=== PATIENT | female | born 1980 | race Caucasian/White ===

== ENCOUNTER 2016-07-04 15:38 | Emergency (ER) | payer OTHER ==
[~2016-07-04 15:38] MED LIST: BACTRIM 400-801 TA1 PO; CERTAGEN PO; CLEOCIN HCL300 M1 PO; DIFLUCAN PO; KEFLEX PO; KEFLEX500 MG PO; MOTRIN600 M1 PO; ORTHO TRI-7 DAYS X PO; VOLTAREN75 MG PO
== END 2016-07-04 15:47 | disposition home or self-care (01) ==
LOC: SED 15:38
DX: N75.0 Cyst of Bartholin's gland (principal); F17.210 Nicotine dependence, cigarettes, uncomplicated; Z79.899 Other long term (current) drug therapy
CPT/HCPCS: 99282